=== PATIENT | female | born 1950 | race Caucasian/White ===

== ENCOUNTER → 2019-08-15 10:29 | Day surgery (SDC) | payer MEDICARE, SELFPAY ==
[2019-08-15 10:53] VITALS: BMI 24.0
[2019-08-15 10:59] VITALS: BP 114/53; PULSE 66; RESP 20; TEMP 36.3; O2SAT 94
[2019-08-15] MEDS: silver nitrate applicator 2 EACH TOPICAL (11:14)
--- NOTE | 2019-08-15 11:47 | PC.NURSE ---
PT GIVEN THOROUGH INSTRUCTIONS FOR USE OF GRAHAM-LOW PROFILE BUTTON. PT INFORMED THAT SHE DID NOT HAVE TO CHECK THE BALLOON EVERY WEEK PER DR. GRANADOS. PT VERY PLEASED WITH BUTTON.
--- NOTE | 2019-08-15 12:34 | P.PCN_ITS ---
Procedure/Consent Time out: Time Out Performed: Yes Consent: Consent for Procedure: Consent obtained from patient Additional Consent Information: Preop diagnosis: Nonfunctioning PEG tube Hyper granulation tissue at the gastrostomy site Postop diagnosis: Same Procedure: Cautery of hypergranulation tissue with silver nitrate Replacement of gastrostomy tube with 20 [place] Juan David button Surgeon: Dr. Cohen Anesthesia: None Description of the procedure: Using gentle traction the PEG tube was removed intact without difficulty. There was small amount of bleeding. There is hypergranulation tissue at the gastrostomy site which was cauterized using silver nitrate. 2.[address] [place] Juan David button was introduced and balloon inflated with 7 cc of saline. Dressings applied. Patient tolerated procedure well. Education provided on vomiting if K got canceled no improvement use of theMicKey button. Acute Procedures Epistaxis Control: Time out performed: Yes
--- NOTE | 2019-08-17 18:17 | P.HP_ITS ---
Providers/Chief Complaint Primary Care Provider: Perez Pierce MD Chief Complaint: Myotonic muscular dystrophy, achalasia History of Present Illness Anya Alamo is a 69 year old female who has a nonfunctioning gastrostomy tube that she would like to have it exchanged. Patient has longstanding dysphagia secondary to a neurological disorder. She also noticed some proud flesh around the gastrostomy site Review of Systems General: Reports: 10 or more systems reviewed and unremarkable except in HPI and below Medications/Allergies Home Medications Medication Instructions Recorded Confirmed Last Taken Type albuterol sulfate 2.5 mg INHALATION Q4H PRN 02/13/19 08/15/19 Unknown History aspirin 81 mg tablet,delayed 81 mg PO ONCE 02/13/19 08/15/19 Unknown History release esomeprazole magnesium 40 mg See Rx Instructions PO BID cap 02/13/19 08/15/19 Unknown History capsule,delayed release meclizine 25 mg tablet 25 mg PO ONCE PRN tab 02/13/19 08/15/19 Unknown History Allergies Allergy/AdvReac Type Severity Reaction Status Date / Time codeine Allergy Unknown Verified 02/13/19 15:20 Penicillins Allergy ADR-Nausea Verified 02/13/19 15:20 PFSH PFSH: Medical History Achalasia Asthma Chronic atrial fibrillation H/O fracture of nose Muscular dystrophy Myotonic dystrophy Osteoporosis Pacemaker Pericardial effusion Surgical History H/O esophagogastroduodenoscopy 10/04/18 with dilation History of cataract surgery bilateral S/P percutaneous endoscopic gastrostomy (PEG) tube placement 10/06/18 S/P placement of cardiac pacemaker Family History Other Cancer Hypertension Muscular dystrophy Stroke Denies family history of Anesthesia complication Bleeding disorder Social History Smoking and tobacco status: never smoked Alcohol intake: never Household members: spouse Marital status: Current occupational status: disabled Vital Signs Vitals Signs: Last Vital Signs Temp 97.4 F L 08/15/19 10:59 Pulse 66 08/15/19 10:59 Resp 20 H 08/15/19 10:59 BP 114/53 08/15/19 10:59 Pulse Ox 94 08/15/19 10:59 Physical Exam Narrative: EXAM NARRATIVE: HEENT: Normocephalic Eye: Sclera /conjunctiva normal Abdomen: Soft to palpation, nonfunctioning gastrostomy tube left upper quadrant Neurological: Oriented to place person and time Skin: Intact, no lesions appreciated on gross exam A&P Assessment and plan (1) S/P percutaneous endoscopic gastrostomy (PEG) tube placement: 69-year-old female with nonfunctioning gastrostomy tube would like to have it exchanged for a Juan David button today. Procedure, risks, benefits and alternatives have been discussed with the patient who wishes to proceed with surgery. Status: Acute Coding Level of Care Code Acute Etched Circuit Processor for Chg Fwd Diagnoses S/P percutaneous endoscopic gastrostomy (PEG) tube placement Z93.1
== END | disposition home or self-care (01) ==
PROVIDERS: PCP Family Medicine; Visit Provider Surgery
PROC: 0DP64UZ Removal of Feeding Device from Stomach, Percutaneous Endoscopic Approach (ICD-10-PCS; CPT 43762; principal; 2019-08-15 12:40)
DX: K94.23 Gastrostomy malfunction (principal)
CPT/HCPCS: 12345; 43760; 43762; 76098

== ENCOUNTER 2020-08-19 15:38 | Emergency (ER) | payer MEDICARE, SELFPAY ==
[2020-08-19 15:45] VITALS: BP 114/52; PULSE 76; RESP 16; TEMP 36.5; O2SAT 94; BMI 24.0
--- NOTE | 2020-08-19 16:19 | PC.NURSE ---
PT ARRIVED TO ROOM; ASSUMED CARE AT THIS TIME
--- NOTE | 2020-08-19 16:27 | W.ED.SKABFB ---
HPI - Skin/Abscess/Foreign Bdy General: Chief complaint: Skin/Abscess/Foreign Body Stated complaint: Has G tube Possible Infection Time Seen by Provider: 08/19/20 16:01 History of Present Illness: HPI narrative: 62-year-old male presents to the emergency room with complaint of redness and irritation around her PEG tube. Is not been changed in a year. It is causing some mild discomfort in that area she is not had any fever sweats or chills or has been a little bit of serous drainage from the area no purulent drainage. MD complaint: discoloration Onset (ago): week(s) Relieving factors: none Exacerbating factors: none Context: other Associated symptoms: Deny arthralgias, chills, fever(s), itching, myalgias, nausea, short of breath or vomiting Treatments prior to arrival: none Review of Systems Const: Denies: fever(s) or chills ENMT: Denies: throat pain, ear or mastoid pain, nasal discharge or nasal congestion Card: Denies: chest pain, edema, dyspnea on exertion or orthopnea Resp: Denies: dyspnea, productive cough or non-productive cough GI: Denies: nausea or vomiting : Denies: flank pain, difficulty voiding, dysuria, urinary frequency or urinary urgency Skin/Breast: Denies: rash or pruritus PFSH ED PFSH: Medical History Achalasia Asthma Chronic atrial fibrillation H/O fracture of nose Muscular dystrophy Myotonic dystrophy Osteoporosis Pacemaker Pericardial effusion Surgical History H/O esophagogastroduodenoscopy 10/04/18 with dilation History of cataract surgery bilateral S/P percutaneous endoscopic gastrostomy (PEG) tube placement 10/06/18 S/P placement of cardiac pacemaker Family History Other Cancer Hypertension Muscular dystrophy Stroke Denies family history of Anesthesia complication Bleeding disorder Social History Smoking and tobacco status: never smoked Alcohol intake: never Household members: spouse Marital status: Current occupational status: disabled Physical Exam Const: COMMON NORMALS: no acute distress GENERAL APPEARANCE: cooperative and comfortable ORIENTATION/CONSCIOUSNESS: Yes awake, Yes oriented to person, Yes oriented to place and Yes oriented to time HENMT: COMMON NORMALS: normocephalic, atraumatic, hearing grossly normal bilaterally and external ears normal HEAD & SCALP: normocephalic and atraumatic EXTERNAL EAR: Yes external ears normal Neck/C-Spine: COMMON NORMALS: no JVD Resp: COMMON NORMALS: normal respiratory effort, No retractions, No use of accessory muscles and clear to auscultation bilaterally AUSCULTATION: clear to auscultation bilaterally Cardio: COMMON NORMALS: no JVD, regular rate, regular rhythm and No murmurs present (Cardio) RATE: regular rate RHYTHM: regular rhythm GI: COMMON NORMALS: Soft to palpation and No hepatosplenomegaly present AUSCULTATION: Yes normoactive bowel sounds PALPATION: Yes Soft to palpation, No Tenderness to palpation present (GI), No Guarding due to palpation present (GI) and Yes No hepatosplenomegaly present OTHER: Erythema with some pressure ulcers essentially have developed in a pattern not consistent with the G-tube button. There are some mild localized erythema there is erosion of the skin surrounding it as well. Extremity: COMMON NORMALS: normal to inspection, capillary refill normal, no clubbing, cyanosis or edema, no calf tenderness and no pedal edema Neuro: SENSORIUM/ORIENTATION: Yes oriented to person, Yes oriented to place and Yes oriented to time Skin: COMMON NORMALS: no rashes or lesions noted GENERAL SKIN EXAM: no rashes or lesions noted Procedures Feeding Tube Replacement Type of Tube: gastrostomy Insertion Site Prior to Procedure: clean, erythematous, excoriated and swollen Tube Used for Reinsertion: other (PEG tube) Balloon size (mL): 7 Verification of Placement: gastrografin injection Tube Secured by: attachment device Patient Tolerated Procedure: well Complications: local bleeding and pain Additional Comments: Juan David tube removed and a PEG tube placed. This tube allowed us to secure with a wide flange to avoid the pressure and excoriation that is caused ulceration of the skin. Patient tolerated well placement confirmed by KUB with Gastrografin injection. Course Vital Signs: Vital signs: Vital Signs Temperature 97.7 F 08/19/20 15:45 Pulse Rate 79 08/19/20 16:28 Respiratory Rate 15 08/19/20 16:28 Blood Pressure 146/66 08/19/20 16:28 Pulse Oximetry 95 08/19/20 16:28 MDM - Skin/Abscess/Foreign Bdy MDM Narrative: Medical decision making narrative: Patient tolerated procedure well there are some mild bleeding from the area where the pressure ulcer is. Essentially the patient has gained weight over the last year and the abdominal wall is pressing up against the exterior portion of the Juan David button. This is removed PEG tube placed the flange was approximated to hold it in place and then gauze was placed underneath to protect the underlying skin take the pressure off of the abdominal wall. Encouraged to follow-up with Dr. Pierce her primary care doctor within the week to reevaluate the wound. He can help her make further arrangements. She would like to have the Juan David button back again but she will probably need one with a longer stem to prevent ulcerations in the future. Dr. Cohen originally placed it. She could follow-up with him as well if she has any problems return. Advised her to change the 4 x 4's around the PEG tube twice a day demonstrated to her how to change the dressing. Did advise her to because the tube is not pulled secure to prevent further ulceration that there may be some leakage from around the tube until were able to replace with something that can be more securely fashioned. Discharge Plan Discharge Patient Disposition: Home Clinical Impression: S/P percutaneous endoscopic gastrostomy (PEG) tube placement, Myotonic dystrophy, Abdominal wall skin ulcer Condition: Stable Prescriptions: No Action albuterol sulfate 2.5 mg /3 mL (0.083 %) solution for nebulization 2.5 mg INHALATION Q4H PRN (Reason: Shortness Of Breath) RF: 0 meclizine 25 mg tablet 25 mg feeding tube DAILY PRN (Reason: Dizziness Or Vertigo) RF: 0 esomeprazole magnesium 40 mg capsule,delayed release(DR/EC) 40 mg feeding tube BID RF: 0 nystatin 100,000 unit/gram cream See Rx Instructions .ROUTE .COMPLEX RF: 0 aspirin 325 mg tablet 325 mg feeding tube DAILY RF: 0 metoprolol tartrate 25 mg tablet 12.5 mg feeding tube DAILY RF: 0 Discharge Orders: Discharge ED (Routine); Ordered 08/19/20 Ordered By: Avila Guillen Referrals: Perez Pierce MD [Primary Care Provider] - Patient Instructions: Opioid Safety Activity Restrictions/Additional Instructions: Follow-up in approximately [address] Pierce. Coding Level of Care Code ED Television News Reporter for Chg Fwd Exam Comprehensive
[2020-08-19 16:28] VITALS: BP 146/66; PULSE 79; RESP 15; O2SAT 95
--- NOTE | 2020-08-19 16:57 | XRR_ITS ---
PROCEDURE INFORMATION: Exam: XR Abdomen Exam date and time: 08/19/2020 4:57 PM Age: 70 years old Clinical indication: Device placement; Gi device; Peg tube; Prior surgery; Additional info: Peg tube placement = 30ml gastrograffin TECHNIQUE: Imaging protocol: XR of the abdomen. Views: Frontal supine view of the abdomen. 1 View. COMPARISON: CT abdomen pelvis w con* [id number] 07/14/2018 10:54 AM FINDINGS: Tubes, catheters and devices: Contrast injection through a percutaneous gastric tube partially fills the gastric lumen. There is no visible contrast extravasation. Gastrointestinal tract: Normal. No bowel dilation. Bones/joints: Unremarkable. XR/XR KUB portable [id number] IMPRESSION: The tip of the percutaneous gastric tube is in the gastric lumen. There is no contrast extravasation with limited filling of the stomach.
[2020-08-19] MEDS: diatrizoate meglumine 30 mL Sol PO (17:00)
== END 2020-08-19 18:19 | disposition home or self-care (01) ==
PROVIDERS: Emergency Provider Family Medicine; PCP Family Medicine
DX: Z43.1 Encounter for attention to gastrostomy (principal); G71.11 Myotonic muscular dystrophy; L98.499 Non-pressure chronic ulcer of skin of other sites with unspecified severity; Z79.82 Long term (current) use of aspirin; G71.00 Muscular dystrophy, unspecified; Z95.0 Presence of cardiac pacemaker
CPT/HCPCS: 43762; 74018; 99283; B4087; Q9963

== ENCOUNTER 2021-08-02 15:34 | Emergency (ER) | payer MEDICARE, SELFPAY ==
[2021-08-02 16:22] VITALS: BP 137/71; PULSE 86; RESP 16; TEMP 36.4; O2SAT 92
[2021-08-02 19:54] LABS: Basophils % 0.6 %; Eosinophils # 0.1 10^3/uL (0.0-0.8); Eosinophils % 1.3 %; Hematocrit 41.5 % (37.0-47.0); Hemoglobin 13.9 g/dL (11.5-15.3); Mean Corpuscular HGB Conc 33.5 g/dL (30.0-36.0); Mean Corpuscular Hemoglobin 30.8 pg (28.0-34.0); Mean Platelet Volume 10.8 fL (7.4-10.4); Monocytes # 0.3 10^3/uL (0.2-0.9); Monocytes % 4.9 %; Nucleated Red Blood Cells % 0 %; Platelet Count 161 10^3/cmm (130-400); Red Blood Count 4.51 10^6/uL (4.1-5.3); Red Cell Distribution Width 13.5 % (12.1-15.1); White Blood Count 5.3 10^3/uL (4.0-10.0)
--- NOTE | 2021-08-02 20:19 | ED_ITS ---
HPI - General Adult General: Chief complaint: General Medical Stated complaint: Feeding Tube Infected Time Seen by Provider: 08/02/21 20:05 History of Present Illness: Patient is a 71-year-old female who is chronically G-tube dependent last G-tube change was over a year ago presenting to the emergency room with concerns for erythema around the G-tube site. Patient tells me that she noticed that there is worsening for the last 2 weeks. Patient has any fever or chills but reports mild drainage around the G-tube site. Patient came to the emergency room to get that checked out. Denies nauesea/vomiting, fever/chill, chest pain, shortness of breath, abdominal pain, dysuria/hematu aaron/polyuria, diarrhea/melena/hematochezia. G-tube was placed by Dr. Cohen. Onset:2 weeks ago Duration:2 weeks Location:home Severity:moderate Associated symptoms: Deny chest pain, dyspnea, nausea, rash, palpitations or vomiting Review of Systems Const: Denies: fever(s) or chills Eyes: Denies: change in vision ENMT: Denies: mouth pain Card: Denies: chest pain or palpitations Resp: Denies: dyspnea or non-productive cough GI: Reports: other (+gtube site erythema and mild drainage); Denies: abdominal pain, nausea, vomiting or diarrhea : Denies: dysuria Musc: Denies: extremity pain Skin/Breast: Denies: rash or new lesions Neuro: Denies: weakness in extremities Psych: Reports: other (Normal mood) Yoni/Lymph: Denies: easy bruising PFS ED PFSH: Medical History Achalasia Asthma Chronic atrial fibrillation H/O fracture of nose Muscular dystrophy Myotonic dystrophy Osteoporosis Pacemaker Pericardial effusion Surgical History H/O esophagogastroduodenoscopy 10/04/18 with dilation History of cataract surgery bilateral S/P percutaneous endoscopic gastrostomy (PEG) tube placement 10/06/18 S/P placement of cardiac pacemaker Family History Other Cancer Hypertension Muscular dystrophy Stroke Denies family history of Anesthesia complication Bleeding disorder Social History Smoking and tobacco status: never smoked Alcohol intake: never Household members: spouse Marital status: Current occupational status: disabled Physical Exam Const: COMMON NORMALS: alert HENMT: COMMON NORMALS: atraumatic HEAD & SCALP: atraumatic MOUTH: moist mucous membranes not abnormal Eye: COMMON NORMALS: EOMs intact bilaterally and conjunctivae normal CONJUNCTIVA: Yes conjunctivae normal Neck/C-Spine: COMMON NORMALS: full ROM and supple Resp: COMMON NORMALS: normal respiratory effort and clear to auscultation bilaterally AUSCULTATION: clear to auscultation bilaterally Cardio: COMMON NORMALS: regular rate RATE: regular rate GI: COMMON NORMALS: Soft to palpation and non-tender PALPATION: Yes Soft to palpation OTHER: + G-tube site with mild erythema, No focal TTP. NO guarding rebound, guarding, rigidity. No CVA tenderness to percussion. Neg Blum/Neg McBurney's point tenderness, no suprabupic tenderness to palpation. Extremity: COMMON NORMALS: full ROM Neuro: SENSORIUM/ORIENTATION: Yes alert MOTOR EXAM: No Abnormal motor strength present and Other motor observations present (no focal motor deficits) Psych: COMMON NORMALS: speech normal SPEECH: Yes normal speech MOOD & AFFECT: Yes euthymic mood Course Vital Signs: Vital signs: Vital Signs Temperature 97.6 F 08/02/21 16:22 Pulse Rate 80 08/03/21 00:02 Respiratory Rate 16 08/03/21 00:02 Blood Pressure 118/60 08/03/21 00:02 Pulse Oximetry 95 08/03/21 00:02 MDM - General Adult Medical Decision Making [id number] female with history of G-tube dependence presents emergency room with mild drainage around the G-tube with erythema x2 weeks. On exam, patient is afebrile, has no signs of peritonitis. Patient is white count 5.3 today. Seem might be simply related to irritation. I have exchanged the G-tube. G-tube placement has been confirmed with a fistulogram. She has no signs peritonitis after the G-tube placement. Unlikely to be stoma infection given its been going on for 2 weeks. However, given patient's concerns of erythema, I have also started patient on Bactrim. Patient received Bactrim in the ED. I have discussed case with Dr. Baker recommended close follow-up with Dr. Cohen for G tube reassessment. Rx bactrim DS BID for possible G car site infection. Disposition: Discharge. Patient counseled regarding diagnostic impression, treatment plan. Patient given ED strict return precautions to return for continuation, worsening, or development of new symptoms. Instructed to f/u w/ Dr. Loza regarding symptoms today. Patient verbalized understanding. Lab Data : 08/02/21 19:38 08/02/21 19:38 Radiology Impressions KUB X-Ray 08/02/21 22:26 IMPRESSION: G-tube in appropriate position. Laboratory Results WBC 5.3 10^3/uL (4.0-10.0) 08/02/21 19:38 RBC 4.51 10^6/uL (4.1-5.3) 08/02/21 19:38 Hgb 13.9 g/dL (11.5-15.3) 08/02/21 19:38 Hct 41.5 % (37.0-47.0) 08/02/21 19:38 MCV 92.0 fl (81-99) 08/02/21 19:38 MCH 30.8 pg (28.0-34.0) 08/02/21 19:38 MCHC 33.5 g/dL (30.0-36.0) 08/02/21 19:38 RDW 13.5 % (12.1-15.1) 08/02/21 19:38 Plt Count 161 10^3/cmm (130-400) 08/02/21 19:38 MPV 10.8 fL (7.4-10.4) H 08/02/21 19:38 Neut % (Auto) 74.0 % 08/02/21 19:38 Lymph % (Auto) 19.0 % 08/02/21 19:38 Metcalfe % (Auto) 4.9 % 08/02/21 19:38 Eos % (Auto) 1.3 % 08/02/21 19:38 Baso % (Auto) 0.6 % 08/02/21 19:38 Neut # (Auto) 3.90 10^3/uL (1.8-7.7) 08/02/21 19:38 Lymph # (Auto) 1.0 10^3/uL (0.8-4.8) 08/02/21 19:38 Metcalfe # (Auto) 0.3 10^3/uL (0.2-0.9) 08/02/21 19:38 Eos # (Auto) 0.1 10^3/uL (0.0-0.8) 08/02/21 19:38 Baso # (Auto) 0.0 10^3/uL (0.0-0.1) 08/02/21 19:38 Nucleated RBC % (auto) 0 % 08/02/21 19:38 Nucleated RBCs # 0.0 /100WBC 08/02/21 19:38 Sodium 137 mmol/L (136-145) 08/02/21 19:38 Potassium 5.0 mmol/L (3.5-5.1) 08/02/21 19:38 Chloride 102 mmol/L (98-107) 08/02/21 19:38 Carbon Dioxide 27 mmol/L (22-29) 08/02/21 19:38 Anion Gap 13.0 (5-19) 08/02/21 19:38 BUN 13 mg/dL (8-23) 08/02/21 19:38 Creatinine 0.3 mg/dL (0.5-0.9) L 08/02/21 19:38 GFR Calculation 220.6 mL/min (90-130) H 08/02/21 19:38 Glucose 102 mg/dL (65-115) 08/02/21 19:38 Calculated Osmolality 284 mOsm/kg (285-295) L 08/02/21 19:38 Calcium 9.4 mg/dL (8.5-10.5) 08/02/21 19:38 Total Bilirubin 0.6 mg/dL (0.15-1.2) 08/02/21 19:38 AST 22 U/L (0-32) 08/02/21 19:38 ALT 20 U/L (0-33) 08/02/21 19:38 Alkaline Phosphatase 108 IU/L (35-105) H 08/02/21 19:38 Total Protein 6.9 g/dL (6.6-8.7) 08/02/21 19:38 Albumin 4.0 g/dL (3.5-5.2) 08/02/21 19:38 Globulin 2.9 g/dL (1.3-4.6) 08/02/21 19:38 Discharge Plan Discharge Patient Disposition: Home Clinical Impression: Complaint associated with gastric tube Condition: Stable Prescriptions: No Action albuterol sulfate 2.5 mg /3 mL (0.083 %) solution for nebulization 2.5 mg INHALATION Q4H PRN (Reason: Shortness Of Breath) 0RF meclizine 25 mg tablet 25 mg feeding tube DAILY PRN (Reason: Dizziness Or Vertigo) 0RF esomeprazole magnesium 40 mg capsule,delayed release(DR/EC) 40 mg feeding tube BID 0RF metoprolol tartrate 25 mg tablet See Rx Instructions .ROUTE .COMPLEX Qty: 45 1RF Dose Instruction: TAKE 1/2 TABLET AT BEDTIME Rx Instructions: TAKE 1/2 TABLET AT BEDTIME nystatin 100,000 unit/gram cream See Rx Instructions .ROUTE .COMPLEX 0RF Rx Instructions: APPLY TO AFFECTED AREA TWO TIMES DAILY aspirin 325 mg tablet 325 mg feeding tube DAILY 0RF Discharge Orders: Discharge ED (Routine); Ordered 08/02/21 Ordered By: Domenic Martin Referrals: Perez Pierce MD [Primary Care Provider] - Discharge Diet: Advance as tolerated Discharge Activity: Increase activity as tolerated Patient Instructions: How to Use and Care for Your PEG Tube (ED) Activity Restrictions/Additional Instructions: Our field case manager will have you follow-up with Dr. Cohen in the next few days. You would be expected to have a phone call with our field case manager who will put yo u on the schedule. You can expect a call from us in the next 2-3 days. If you don't hear from us, call us back in the emergency room at [phone]. Please come back if any fever or chills, worsening drainage, abdominal pain, or any new concerning complaints. Please take your antibiotics as instructed. Watch out for signs of skin changes/redness, mouth redeness or swelling, nausea/vomiting, diarrhea, blood in the urine or any new or concering complaints. Coding Level of Care Code ED Track Surfacing Machine Operator for Johann Bae Exam Comprehensive
[2021-08-02 20:21] LABS: Alanine Aminotransferase 20 U/L (0-33); Alkaline Phosphatase 108 IU/L (35-105); Aspartate Amino Transferase 22 U/L (0-32); Blood Urea Nitrogen 13 mg/dL (8-23); Calcium 9.4 mg/dL (8.5-10.5); Carbon Dioxide 27 mmol/L (22-29); Chloride 102 mmol/L (98-107); Creatinine Clr Calc Pharmacy 62.9019; Globulin 2.9 g/dL (1.3-4.6); Glomerular Filtration Rate 220.6 mL/min (90-130); Glucose 102 mg/dL (65-115); Osmolality Calculated 284 mOsm/kg (285-295); Sodium 137 mmol/L (136-145); Total Bilirubin 0.6 mg/dL (0.15-1.2); Total Protein 6.9 g/dL (6.6-8.7)
[2021-08-02 21:08] VITALS: BP 135/55; PULSE 73; RESP 18; O2SAT 95
--- NOTE | 2021-08-02 21:41 | XRR_ITS ---
PROCEDURE INFORMATION: Exam: XR Abdomen Exam date and time: 08/02/2021 9:50 PM Age: 71 years old Clinical indication: Device placement; Gi device; Other: G tube; Additional info: Fistulagram, new g tube TECHNIQUE: Imaging protocol: Radiologic exam of the abdomen. Views: Frontal supine view of the abdomen. 1 View. COMPARISON: CR XR abdomen min 2V [id number] 08/21/2020 12:58 PM FINDINGS: Tubes, catheters and devices: A G-tube projects over the left mid abdomen. No contrast was injected to determine its location. Cardiac pacer lead is seen projecting in the expected location of the heart. Gastrointestinal tract: Normal. No bowel dilation. Bones/joints: Unremarkable. XR/XR KUB portable [id number] IMPRESSION: G-tube in the left side of the abdomen.
--- NOTE | 2021-08-02 22:26 | XRR_ITS ---
PROCEDURE INFORMATION: Exam: XR Abdomen Exam date and time: 08/02/2021 10:28 PM Age: 71 years old Clinical indication: Device placement; Gi device; Other: G tube placement TECHNIQUE: Imaging protocol: Radiologic exam of the abdomen. Views: Frontal supine view of the abdomen. 1 View. COMPARISON: CR (ABDOMEN, ) 08/02/2021 9:50 PM FINDINGS: Tubes, catheters and devices: G-tube is seen with its bubble in the fundus of the stomach contrast which now has been injected outlines normal rugal folds and extends out through the duodenum. No extravasation into the peritoneal space. Gastrointestinal tract: Normal. No bowel dilation. Bones/joints: Unremarkable. XR/XR KUB portable [id number] IMPRESSION: G-tube in appropriate position.
[2021-08-02 22:30] VITALS: BP 117/57; PULSE 80; RESP 16; O2SAT 95
[2021-08-02] MEDS: sulfamethoxazole-trimeth DS 160-800 mg Tablet 1 TAB PO (22:54)
[2021-08-03] VITALS: BP 118/60; PULSE 80; RESP 16; O2SAT 95
[2021-08-03 00:02] VITALS: BP 118/60; PULSE 80; RESP 16; O2SAT 95
== END 2021-08-03 00:06 | disposition home or self-care (01) ==
PROVIDERS: Physician Assistant; Emergency Provider Emergency Medicine; PCP Family Medicine
DX: Z46.59 Encounter for fitting and adjustment of other gastrointestinal appliance and device (principal); L53.9 Erythematous condition, unspecified; G71.11 Myotonic muscular dystrophy
CPT/HCPCS: 36415; 43762; 74018; 80053; 85025; 99283

== ENCOUNTER → 2021-10-20 15:33 | Outpatient (BNVA) | payer MEDICARE, SELFPAY | PROVIDERS: PCP Family Medicine; Visit Provider Internal Medicine Cardiovascular Disease | DX: I31.3 Pericardial effusion (noninflammatory) (principal); Z95.0 Presence of cardiac pacemaker | CPT/HCPCS: 93280; 99213; 99214 ==

== ENCOUNTER 2022-01-05 14:46 | Outpatient (CLI) | payer MEDICARE, SELFPAY ==
--- NOTE | 2022-01-05 15:00 | USCV_ITS ---
Anya Alamo Age: 71 Gender: F : 1950 Exam Date: 01/05/2022 15:34 Ordering Phys: Janki Davenport MD ([email or web address]) Technologist: JUAN JOSE Exam Location: [facility] [place] Indication: PERICARDIAL EFFUSION BP: 118 / 72 HR: 72 Rhythm: Sinus Technical Quality: Suboptimal MEASUREMENTS (Male / Female) Normal Values 2D ECHO LVOT Diameter 2.0 cm LV Ejection Fraction MOD 2C 68.1 % LV Ejection Fraction 2C AL 69.6 % LA Diameter 2.4 cm LA Width 2.8 cm LA Height 2.6 cm RA Width 2.4 cm RA Height 3.3 cm Aorta at Sinotubular Diameter 2.1 cm M-MODE Aortic Annulus Diameter 2.7 cm LA Ao Ratio MM 0.8 MV E Point Septal Separation 0.6 cm DOPPLER AV Peak Velocity 170.3 cm/s LVOT Peak Velocity 88.0 cm/s AV Area Cont Eq vti 1.6 cm squared AV Area Cont Eq pk 1.6 cm squared MV Peak Velocity 70.0 cm/s MV Area PHT 5.0 cm squared Mitral E to A Ratio 0.8 MV E' Velocity 25.0 cm/s Mitral E to MV E' Ratio 5.4 Mitral E to LV E' Lateral Ratio 5.1 Mitral E to LV E' Septal Ratio 5.8 TR Peak Velocity 234.6 cm/s TR Peak Gradient 22.0 mmHg TR Mean Velocity 189.7 cm/s TR Mean Gradient 16.0 mmHg TR Velocity Time Integral 86.2 cm TV Peak E Velocity 46.0 cm/s Right Atrial Pressure 8.0 mmHg Pulmonary Artery Systolic Pressu 30.0 mmHg PV Peak Velocity 113.0 cm/s RV Acceleration Time 0.2 s RV Ejection Time 0.3 s RV AcT/ET 0.6 FINDINGS Left Ventricle Normal left ventricular size, systolic function and wall thickness, with no diagnostic regional wall motion abnormalities. Left ventricular ejection fraction is estimated at 60 %. Normal diastolic function. Abnormal septal motion consistent with conduction abnormality. Right Ventricle Normal right ventricular size and systolic function. Right ventricular systolic pressure 27.6 mmHg. Right Atrium Normal right atrial size. Left Atrium Normal left atrial size. Mitral Valve Structurally normal mitral valve. No mitral valve stenosis. Trace mitral valve regurgitation. Aortic Valve Structurally normal trileaflet aortic valve. No aortic valve stenosis. No aortic valve regurgitation. Tricuspid Valve Structurally normal tricuspid valve. No tricuspid valve stenosis. Mild tricuspid valve regurgitation. Pulmonic Valve Pulmonic valve not well visualized. No pulmonary valve stenosis. Trace pulmonary valve regurgitation. Pericardium No pericardial effusion. Aorta Normal size aortic root and proximal ascending aorta. IVC Normal IVC dimension with >50% respiratory change of the inferior vena cava. CONCLUSIONS 1. Normal left ventricular size, systolic function and wall thickness, with no diagnostic regional wall motion abnormalities. Left ventricular ejection fraction is estimated at 60 %. Normal diastolic function. 2. Normal right ventricular size and systolic function. 3. Pulmonary artery pressure estimated at 28 mm Hg. 4. Mild tricuspid valve regurgitation. 5. No pericardial effusion. 6. When compared to study dated 07/21/2018, there is no pericardial effusion now. Janki Davenport MD (Electronically Signed) Final Date: 10 January 2022 19:37 S
== END 2022-01-05 14:47 | disposition home or self-care (01) ==
LOC: RAD 14:47
PROVIDERS: PCP Family Medicine; Visit Provider Internal Medicine Cardiovascular Disease
DX: I31.39 Other pericardial effusion (noninflammatory) (principal); R06.02 Shortness of breath; I07.1 Rheumatic tricuspid insufficiency
CPT/HCPCS: 93306

== ENCOUNTER 2022-08-03 14:46 | Emergency (ER) | payer MEDICARE, SELFPAY ==
[2022-08-03 14:57] VITALS: BP 101/55; PULSE 86; RESP 12; TEMP 36.6; O2SAT 92; BMI 25.7
--- NOTE | 2022-08-03 16:02 | XRR_ITS ---
PROCEDURE INFORMATION: Exam: XR Abdomen Exam date and time: 08/03/2022 4:09 PM Age: 72 years old Clinical indication: Device placement; Gi device; Peg tube; Additional info: Peg tube placement, gastrogaffin TECHNIQUE: Imaging protocol: Radiologic exam of the abdomen. Views: Frontal supine view of the abdomen. 1 View. COMPARISON: CR XR KUB portable [id number] 08/02/2021 10:28 PM FINDINGS: Tubes, catheters and devices: Peg tube with inflated bulb in the mid body of the stomach. Lungs: Calcified granuloma or phlebolith in the upper left abdomen. Gastrointestinal tract: There is contrast material within the PEG tube catheter and within the lumen of the stomach and proximal duodenum. No visible leak. Bones/joints: Unremarkable. XR/XR KUB [id number] IMPRESSION: 1. Peg tube in the mid body of the stomach. No visible leak.
--- NOTE | 2022-08-03 16:07 | ED_ITS ---
HPI - General Adult General: Chief complaint: General Medical Stated complaint: feeding tube Needs changed Time Seen by Provider: 08/03/22 15:40 Source: patient Mode of arrival: ambulatory Limitations: no limitations History of Present Illness: 72-year-old female states she had a PEG tube for years states that its been clogged she has not been able to use it she denies any pain denies any drainage she states that just needs replaced Associated symptoms: Deny chest pain, headache(s), nausea, rash or vomiting Review of Systems Const: Denies: fever(s) ENMT: Denies: throat pain Card: Denies: chest pain GI: Denies: abdominal pain, nausea or vomiting Musc: Denies: back pain Skin/Breast: Denies: rash Neuro: Denies: headache(s) PFSH ED PFSH: Medical History Achalasia Asthma Chronic atrial fibrillation H/O fracture of nose Muscular dystrophy Myotonic dystrophy Osteoporosis Pacemaker Pericardial effusion Surgical History H/O esophagogastroduodenoscopy 10/04/18 with dilation History of cataract surgery bilateral S/P percutaneous endoscopic gastrostomy (PEG) tube placement 10/06/18 S/P placement of cardiac pacemaker Family History Other Cancer Hypertension Muscular dystrophy Stroke Denies family history of Anesthesia complication Bleeding disorder Social History Smoking and tobacco status: never smoked Alcohol intake: never Substance/Drug Use: never Household members: spouse Marital status: Current occupational status: disabled Physical Exam Const: COMMON NORMALS: no acute distress and patient oriented x3 HENMT: COMMON NORMALS: normocephalic HEAD & SCALP: normocephalic Eye: COMMON NORMALS: conjunctivae normal CONJUNCTIVA: Yes conjunctivae normal Neck/C-Spine: COMMON NORMALS: supple Chest: COMMONS NORMALS: normal inspection of the chest Resp: COMMON NORMALS: normal respiratory effort Cardio: COMMON NORMALS: regular rate RATE: regular rate GI: OTHER: PEG tube currently in place this clogged and not functioning Extremity: COMMON NORMALS: normal to inspection Neuro: COMMON NORMALS: patient oriented x3 Psych: COMMON NORMALS: mental status grossly normal Procedures Feeding Tube Replacement Type of Tube: gastrostomy Insertion Site Prior to Procedure: clean Tube Used for Reinsertion: other (peg) Tamazight Tube Size (F): 20 Balloon size (mL): 10 Verification of Placement: KUB and gastrografin injection Tube Secured by: tape/dressing Patient Tolerated Procedure: well Course Vital Signs: Vital signs: Vital Signs Temperature 97.9 F 08/03/22 14:57 Pulse Rate 86 08/03/22 14:57 Respiratory Rate 12 08/03/22 14:57 Blood Pressure 101/55 08/03/22 14:57 Pulse Oximetry 92 08/03/22 14:57 Oxygen Delivery Me thod Room Air 08/03/22 14:57 MDM - General Adult Medical Decision Making Patient presents here with PEG tube dysfunction I did place a new PEG tube x-ray shows PEG tube is in place she is stable for discharge she is to follow-up with her PCP and return if worsening. Discharge Plan Discharge Patient Disposition: Home Clinical Impression: Malfunction of percutaneous endoscopic gastrostomy (PEG) tube Condition: Stable Prescriptions: No Action albuterol sulfate 2.5 mg /3 mL (0.083 %) solution for nebulization 2.5 mg INHALATION Q4H PRN (Reason: Shortness Of Breath) meclizine 25 mg tablet 25 mg feeding tube DAILY PRN (Reason: Dizziness Or Vertigo) esomeprazole magnesium 40 mg capsule,delayed release(DR/EC) 40 mg feeding tube BID metoprolol tartrate 25 mg tablet See Rx Instructions .ROUTE .COMPLEX Qty: 45 3RF Dose Instruction: TAKE 1/2 TABLET AT BEDTIME Rx Instructions: TAKE 1/2 TABLET AT BEDTIME nystatin 100,000 unit/gram cream See Rx Instructions .ROUTE .COMPLEX Rx Instructions: APPLY TO AFFECTED AREA TWO TIMES DAILY aspirin 325 mg tablet 325 mg feeding tube DAILY Discharge Orders: Discharge ED (Routine); Ordered 08/03/22 Ordered By: Yessenia Anaya Referrals: Perez Pierce MD [Primary Care Provider] - Discharge Diet: Advance as tolerated Discharge Activity: Resume usual activity Patient Instructions: PEG Tube Insertion (DC) Coding Level of Care Code ED Mail Order Clerk for Heathg Kathia
[2022-08-03 16:30] VITALS: BP 128/55; PULSE 79; RESP 16; O2SAT 91
== END 2022-08-03 16:31 | disposition home or self-care (01) ==
PROVIDERS: Emergency Provider Emergency Medicine; PCP Family Medicine
DX: K94.23 Gastrostomy malfunction (principal); Y73.1 Therapeutic (nonsurgical) and rehabilitative gastroenterology and urology devices associated with adverse incidents; Z79.82 Long term (current) use of aspirin; Z95.0 Presence of cardiac pacemaker
CPT/HCPCS: 43762; 74018; 99283

== ENCOUNTER → 2022-08-31 14:00 | Outpatient (BNVA) | payer MEDICARE, SELFPAY | PROVIDERS: PCP Family Medicine; Visit Provider Surgery | DX: K94.23 Gastrostomy malfunction (principal) | CPT/HCPCS: 99203; 99214 ==